=== PATIENT | male | born 1990 | race Caucasian/White ===

== ENCOUNTER 2018-06-10 07:26 | Emergency (ER) | payer SELFPAY ==
[2018-06-10 07:27] VITALS: BP 138/80; PULSE 82; RESP 14; TEMP 36.5; BMI 33.5
--- NOTE | 2018-06-10 07:38 | ED.VISSUMM ---
- ER Visit Summary Date of Service: 06/10/18 Chief Complaint: Right ear pain History of Present Illness: The patient is a 27 M who has had right ear pain for 5 days. He was seen at [facility] on Friday and diagnosed with an ear infection. He is given amoxicillin. He states that his mom told him that amoxicillin does not necessarily work for him. Last night his pain got worse. He did have a clear fluid that drained out of the right ear last night. He has been trying Tylenol which has not helped the pain. He denies any fevers. Physical Examination: Vital signs are reviewed. HEENT exam reveals calcification of his right tympanic membrane which could be due to previous infection. His TM is erythematous. His neck is supple without lymphadenopathy. Test Results: [] Emergency Department Course and Treatment: The patient's right ear was irrigated to rule out any foreign bodies. None were seen or able to be irrigated. The white areas are likely calcifications due to previous infections. Patient will be given Omnicef. He will need to follow-up with his PCP Treatment Plan: [] Disposition: Discharge Impression: Right otitis media This note was generated with [employer] dictation software. It may contain incorrect words, spelling, and punctuation that were not noted in review of the chart prior to signing ED Disposition - Plan for ED Patient: Chief Complaint: Ear Problem Referrals: Tra Watkins MD [Primary Care Provider] -
--- NOTE | 2018-06-10 07:52 | ED.DEP ---
ED Disposition - Plan for ED Patient: Disposition: Home or Assisted Living Chief Complaint: Ear Problem Instructions: ED Otitis Media Acute Adult Prescriptions: Cefdinir [Omnicef [equiv]] 300 mg PO DAILY #7 cap Referrals: Tra Watkins MD [Primary Care Provider] -
== END 2018-06-10 08:01 | disposition home or self-care (01) ==
PROVIDERS: Emergency Provider Emergency Medicine; Family Provider Family Medicine; PCP Family Medicine
DX: H66.91 Otitis media, unspecified, right ear (principal)
CPT/HCPCS: 99282

== ENCOUNTER → 2020-09-07 | Outpatient (CLI) | payer SELFPAY | END | disposition home or self-care (01) | LOC: LABSPEC 15:37 | PROVIDERS: PCP Family Medicine; Referring Provider Family Medicine; Visit Provider Family Medicine | DX: Z20.828 Contact with and (suspected) exposure to other viral communicable diseases (principal) | CPT/HCPCS: 87635; U0003 ==